=== PATIENT | female | born 1955 | race African-American/Black ===

== ENCOUNTER 2022-02-21 15:01 | Inpatient (IN) | payer BC, MEDICAID ==
[~2022-02-21] VITALS: Ht 170.2 cm; Wt 114.3 kg
[2022-02-21] MEDS ORDERED: LEVETIRACETAM 1000MG PREMIX 1,000 ML IV ONE (15:30)
[2022-02-21] MEDS ORDERED: SODIUM CHLORIDE 0.9% 1,000 ML IV ONE (15:30)
[2022-02-21 16:10] LABS: BASOPHILS % 0.6 % (0.0-2.0); CHLORIDE 106 mEq/L (98-107); EOSINOPHILS % 0.5 % (0.0-5.0); HEMATOCRIT. 42.7 % (36.0-48.0); HEMOGLOBIN. 14.3 g/dL (12.0-16.0); LYMPHOCYTES % 29.1 % (20.0-50.0); MEAN CORPUSCULAR HEMOGLOBIN 31.1 pg (28.0-32.0); MEAN CORPUSCULAR VOLUME 92.7 fL (81.0-99.0); MEAN PLATELET VOLUME 8.6 fl (7.4-10.4); MONOCYTES % 6.7 % (2.0-8.0); NEUTROPHILS % 63.1 % (40.0-76.0); PLATELET 235 x1000/uL (130-400); RED CELL DISTRIBUTION WIDTH 14.6 % (11.6-14.6)
[2022-02-21] MEDS ORDERED: LORAZEPAM 2MG/ML CPJ IV ONE (16:45)
[2022-02-21] MEDS ORDERED: LORAZEPAM 2MG/ML CPJ IV PRN ×2 (16:45→20:45)
[2022-02-21 20:24] LABS: CLARITY URINE CLEAR (CLEAR); COLOR URINE YELLOW (YELLOW); KETONES URINE NEGATIVE (NEGATIVE); LEUKOCYTE ESTERASE URINE NEGATIVE (NEGATIVE); NITRITE URINE NEGATIVE (NEGATIVE); OCCULT BLOOD URINE NEGATIVE (NEGATIVE); PROTEIN URINE NEGATIVE (NEGATIVE); SPECIFIC GRAVITY URINE 1.007 (1.005-1.030); UROBILINOGEN URINE 0.2 E.U./dL (0.2-1.0)
[2022-02-21] MEDS ORDERED: ONDANSETRON HCL 4MG/2ML INJ IV PRN (20:45)
[2022-02-21] MEDS ORDERED: DIPHENHYDRAMINE 50MG/ML VIAL IV PRN (20:45)
[2022-02-21] MEDS ORDERED: ACETAMINOPHEN 650MG SUPP PR PRN ×2 (20:45)
[2022-02-21] MEDS ORDERED: LEVETIRACETAM 500 MG in SODIUM CHLORIDE 0.9% 100 ML IV SCH (20:45)
[2022-02-21 22:48] VITALS: BP 127/78
[2022-02-21] MEDS: DEXT 5%/0.45% NACL 1000ML 1,000 ML IV SCH (23:21)
[2022-02-21] MEDS: LEVETIRACETAM 500MG PREMIX 100 ML IV SCH (23:21)
[2022-02-22] VITALS: BP 117/69
[2022-02-22 04:00] VITALS: BP 113/78
[2022-02-22 08:00] VITALS: BP 152/65
[2022-02-22] MEDS: DEXT 5%/0.45% NACL 1000ML 1,000 ML IV SCH ×2 (11:08→23:26)
[2022-02-22] MEDS: LEVETIRACETAM 500MG PREMIX 100 ML IV SCH ×2 (11:09→21:07)
[2022-02-22 11:25] LABS: BASOPHILS % 0.3 % (0.0-2.0); EOSINOPHILS % 0.4 % (0.0-5.0); HEMATOCRIT. 45.3 % (36.0-48.0); HEMOGLOBIN. 14.7 g/dL (12.0-16.0); LYMPHOCYTES % 33.8 % (20.0-50.0); MEAN CORPUSCULAR VOLUME 95.4 fL (81.0-99.0); MEAN PLATELET VOLUME 8.3 fl (7.4-10.4); MONOCYTES % 8.6 % (2.0-8.0); NEUTROPHILS % 56.9 % (40.0-76.0); PLATELET 222 x1000/uL (130-400); RED BLOOD CELL COUNT 4.75 mill/uL (4.2-5.4); RED CELL DISTRIBUTION WIDTH 15.5 % (11.6-14.6)
[2022-02-22 12:00] VITALS: BP 146/64
[2022-02-22 12:12] LABS: PHOSPHORUS 2.1 mg/dL (2.5-4.9)
[2022-02-22 12:50] LABS: CHLORIDE 110 mEq/L (98-107)
[2022-02-22] MEDS ORDERED: POTASSIUM CHLORIDE INJ 40 MEQ in DEXT 5% WATER 250 ML IV ONE (15:15)
[2022-02-22] MEDS ORDERED: SENNOSIDES/DOCUSATE SOD 8.6/50MG TABLET PO PRN (15:15)
[2022-02-22 16:00] VITALS: BP 132/75
[2022-02-22] MEDS: AMLODIPINE 5MG TABLET PO SCH (16:22)
[2022-02-22] MEDS: DONEPEZIL HCL 5MG TABLET PO SCH (16:22)
[2022-02-22] MEDS ORDERED: MAGNESIUM 1 G PREMIX 100 ML IV NR (16:30)
[2022-02-22] MEDS: CHOLECALCIFEROL (D3) 1000 UNIT TABLET PO SCH (19:33)
[2022-02-22] MEDS: ACETAMINOPHEN 325MG TABLET PO PRN (19:33)
[2022-02-22] MEDS: KCL 20MEQ/100ML X 2 FOR TOTAL KCL 40MEQ/200ML IV SCH ×2 (19:34→21:07)
[2022-02-22] MEDS: ENOXAPARIN 120MG/0.8ML SYR SUBCUT SCH (19:37)
[2022-02-22] MEDS ORDERED: MULT-624 MT (19:54)
[2022-02-22] MEDS ORDERED: CHOL400D7 PO (19:54)
[2022-02-22] MEDS ORDERED: ACET650S27 RC (19:54)
[2022-02-22] MEDS ORDERED: PANT40TA51 PO (19:54)
[2022-02-22] MEDS ORDERED: SENN-257 PO (19:54)
[2022-02-22] MEDS ORDERED: AMLO10TA80 PO (19:54)
[2022-02-22] MEDS ORDERED: HYDR2TAB7 PO (19:54)
[2022-02-22] MEDS ORDERED: GABA-532 PO (19:54)
[2022-02-22] MEDS ORDERED: ATOR-2 PO (19:54)
[2022-02-22] MEDS ORDERED: RIVA20TA PO (19:54)
[2022-02-22] MEDS ORDERED: DONE-51 PO (19:54)
[2022-02-22 20:00] VITALS: BP 126/73
[2022-02-22] MEDS: PANTOPRAZOLE 40MG DR TABLET PO SCH (21:08)
[2022-02-22] MEDS: ATORVASTATIN CALCIUM 40MG TABLET PO SCH (21:08)
[2022-02-23] VITALS: BP 119/71
[2022-02-23 04:00] VITALS: BP 127/76
[2022-02-23] MEDS: PANTOPRAZOLE 40MG DR TABLET PO SCH (06:07)
[2022-02-23] MEDS: ENOXAPARIN 120MG/0.8ML SYR SUBCUT SCH (06:22)
[2022-02-23 08:00] VITALS: BP 127/72
[2022-02-23 08:02] LABS: BASOPHILS % 0.5 % (0.0-2.0); EOSINOPHILS % 1.2 % (0.0-5.0); HEMATOCRIT. 39.8 % (36.0-48.0); HEMOGLOBIN. 13.4 g/dL (12.0-16.0); LYMPHOCYTES % 45.9 % (20.0-50.0); MEAN CORPUSCULAR VOLUME 92.3 fL (81.0-99.0); MONOCYTES % 6.6 % (2.0-8.0); NEUTROPHILS % 45.8 % (40.0-76.0); PLATELET 205 x1000/uL (130-400); RED BLOOD CELL COUNT 4.31 mill/uL (4.2-5.4); RED CELL DISTRIBUTION WIDTH 15.5 % (11.6-14.6)
[2022-02-23 08:05] LABS: INR 1.2; PROTHROMBIN TIME 12.3 sec (9.6-11.0)
[2022-02-23] MEDS: AMLODIPINE 5MG TABLET PO SCH ×2 (08:11→21:12)
[2022-02-23] MEDS: LEVETIRACETAM 500MG PREMIX 100 ML IV SCH ×2 (08:11→21:11)
[2022-02-23] MEDS: DONEPEZIL HCL 5MG TABLET PO SCH (08:11)
[2022-02-23] MEDS: CHOLECALCIFEROL (D3) 1000 UNIT TABLET PO SCH (08:11)
[2022-02-23] MEDS: ACETAMINOPHEN 325MG TABLET PO PRN (08:11)
[2022-02-23 09:17] LABS: CHLORIDE 107 mEq/L (98-107)
[2022-02-23 09:36] LABS: PHOSPHORUS 2.5 mg/dL (2.5-4.9)
[2022-02-23] MEDS ORDERED: IOHEXOL-350 100 ML BOTTLE ONE (11:14)
[2022-02-23 12:00] VITALS: BP 132/76
[2022-02-23] MEDS: DEXT 5%/0.45% NACL 1000ML 1,000 ML IV SCH (13:38)
[2022-02-23 16:00] VITALS: BP 144/80
[2022-02-23 20:00] VITALS: BP 115/73
[2022-02-23] MEDS: ATORVASTATIN CALCIUM 40MG TABLET PO SCH (21:12)
[2022-02-23] MEDS: FAMOTIDINE 20MG TABLET PO SCH (21:12)
[2022-02-23 23:39] LABS: CLARITY URINE CLOUDY (CLEAR); COLOR URINE YELLOW (YELLOW); KETONES URINE NEGATIVE (NEGATIVE); LEUKOCYTE ESTERASE URINE 1+ (NEGATIVE); NITRITE URINE POSITIVE (NEGATIVE); OCCULT BLOOD URINE 2+ (NEGATIVE); PROTEIN URINE TRACE (NEGATIVE); SPECIFIC GRAVITY URINE 1.082 (1.005-1.030); UROBILINOGEN URINE 0.2 E.U./dL (0.2-1.0)
[2022-02-24] VITALS: BP 116/69
[2022-02-24] MEDS: DEXT 5%/0.45% NACL 1000ML 1,000 ML IV SCH (01:43)
[2022-02-24 04:00] VITALS: BP 126/70
[2022-02-24] MEDS: ENOXAPARIN 120MG/0.8ML SYR SUBCUT SCH ×2 (05:54→17:50)
[2022-02-24 08:00] VITALS: BP 127/65
[2022-02-24] MEDS: CHOLECALCIFEROL (D3) 1000 UNIT TABLET PO SCH (08:13)
[2022-02-24] MEDS: FAMOTIDINE 20MG TABLET PO SCH ×2 (08:14→20:43)
[2022-02-24] MEDS: DONEPEZIL HCL 5MG TABLET PO SCH (08:14)
[2022-02-24] MEDS: LEVETIRACETAM 500MG PREMIX 100 ML IV SCH ×2 (08:14→20:43)
[2022-02-24] MEDS: AMLODIPINE 5MG TABLET PO SCH ×2 (08:14→20:44)
[2022-02-24] MEDS ORDERED: CEFTRIAXONE 1 G PREMIX 50 ML IV SCH (10:15)
[2022-02-24 12:00] VITALS: BP 131/68
[2022-02-24] MEDS: CEFTRIAXONE 1,000 MG in DEXTROSE 5% WATER 50 ML IV SCH (12:53)
[2022-02-24 16:00] VITALS: BP 110/68
[2022-02-24 20:00] VITALS: BP 135/54
[2022-02-24] MEDS: ACETAMINOPHEN 325MG TABLET PO PRN (20:43)
[2022-02-24] MEDS: ATORVASTATIN CALCIUM 40MG TABLET PO SCH (20:44)
[2022-02-25] VITALS: BP 129/67
[2022-02-25 04:30] VITALS: BP 117/63
[2022-02-25] MEDS: ENOXAPARIN 120MG/0.8ML SYR SUBCUT SCH (05:12)
[2022-02-25] MEDS: ACETAMINOPHEN 325MG TABLET PO PRN ×2 (05:34→08:47)
[2022-02-25 08:00] VITALS: BP 143/79
[2022-02-25] MEDS: AMLODIPINE 5MG TABLET PO SCH (08:47)
[2022-02-25] MEDS: DONEPEZIL HCL 5MG TABLET PO SCH (08:47)
[2022-02-25] MEDS: FAMOTIDINE 20MG TABLET PO SCH (08:47)
[2022-02-25] MEDS: CHOLECALCIFEROL (D3) 1000 UNIT TABLET PO SCH (08:48)
[2022-02-25] MEDS: LEVETIRACETAM 500MG PREMIX 100 ML IV SCH (08:48)
[2022-02-25 12:00] VITALS: BP 140/90
[2022-02-25] MEDS: CEFTRIAXONE 1,000 MG in DEXTROSE 5% WATER 50 ML IV SCH (12:58)
[2022-02-25 14:04] VITALS: BP 140/91
== END 2022-02-25 16:58 | disposition home or self-care (01) | DRG 101 ==
LOC: ER 15:01 → 6WST 18:02 → EDBEDREQ 18:21 → ENRESERV 20:07
PROVIDERS: ADMIT Internal Medicine; ATTEND Internal Medicine
PROC: 4A00X4Z Measurement of Central Nervous Electrical Activity, External Approach (ICD-10-PCS; principal; 2022-02-24)
DX: G40.901 Epilepsy, unspecified, not intractable, with status epilepticus (principal); I69.351 Hemiplegia and hemiparesis following cerebral infarction affecting right dominant side; Z68.41 Body mass index [BMI] 40.0-44.9, adult; N39.0 Urinary tract infection, site not specified; Z20.822 Contact with and (suspected) exposure to COVID-19; E78.00 Pure hypercholesterolemia, unspecified; G89.29 Other chronic pain; I11.9 Hypertensive heart disease without heart failure; E66.01 Morbid (severe) obesity due to excess calories; Z79.01 Long term (current) use of anticoagulants; Z79.899 Other long term (current) drug therapy
CPT/HCPCS: 36415; 70551; 71046; 71275; 80048; 80053; 81003; 83735; 84100; 84443; 85025; 85379; 87426; 93005; 93306; 93970; 95816; 97162; 99291; C9803; J0696; J1650; J1953; J2060; J3475; J3480; J7030; J7060; Q9967

== ENCOUNTER 2024-08-08 08:25 | Inpatient (IN) | payer MEDICARE, MEDICAID ==
[~2024-08-08] VITALS: Ht 165.1 cm; Wt 130.2 kg
[2024-08-08] VITALS (33 sets, daily range): BP systolic 134–188; BP diastolic 62–135; PULSE 87–104; RESP 13–27; TEMP 36.5–37.6; O2SAT 94–100
[~2024-08-08 08:25] MED LIST: ACET650S27 RC; AMLO10TA80 PO; ATOR-2 PO; CHOL400D7 PO; DONE-51 PO; GABA-1180 PO; HYDR2TAB7 PO; MULT-624 MT; PANT40TA51 PO; RIVA20TA PO; SENN-362 PO
[2024-08-08] MEDS ORDERED: LORAZEPAM 2MG/ML INJ IV ONE (09:45)
[2024-08-08] MEDS ORDERED: LEVETIRACETAM 500MG PREMIX 100 ML IV ONE (09:45)
[2024-08-08] MEDS ORDERED: LORAZEPAM 2MG/ML INJ IV NR (09:45)
[2024-08-08] MEDS: LORAZEPAM 2MG/ML UD SYRINGE IV NR (09:49)
[2024-08-08] MEDS: LEVETIRACETAM 1500MG PREMIX 100 ML IV SCH (09:55)
[2024-08-08 09:58] LABS: BASOPHILS % 0.2 % (0.0-2.0); HEMATOCRIT. 47.8 % (36.0-48.0); HEMOGLOBIN. 15.4 g/dL (12.0-16.0); LYMPHOCYTES % 8.9 % (20.0-50.0); MEAN CORPUSCULAR HEMOGLOBIN 30.7 pg (28.0-32.0); MEAN CORPUSCULAR HGB CONC 32.2 g/dL (31.0-37.0); MEAN CORPUSCULAR VOLUME 95.3 fL (81.0-99.0); MEAN PLATELET VOLUME 8.8 fl (7.4-10.4); MONOCYTES % 3.8 % (2.0-8.0); NEUTROPHILS % 87.1 % (40.0-76.0); PLATELET 290 x1000/uL (130-400); RED BLOOD CELL COUNT 5.01 mill/uL (4.2-5.4); RED CELL DISTRIBUTION WIDTH 14.5 % (11.6-14.6); WHITE BLOOD COUNT 11.6 x1000/uL (4.5-11.0)
[2024-08-08 10:02] LABS: CHLORIDE 105 mEq/L (98-107); POTASSIUM 3.7 mEq/L (3.5-5.1); SODIUM 142 mEq/L (136-145)
[2024-08-08 10:03] LABS: CARBON DIOXIDE 26 mEq/L (21-32)
[2024-08-08 10:08] LABS: CREATININE 0.9 mg/dL (0.6-1.0); GLUCOSE 151 mg/dL (70-105); UREA NITROGEN BLOOD 10 mg/dL (9-23)
[2024-08-08 10:09] LABS: ALANINE AMINOTRANSFERASE 22 IU/L (10-49); ASPARTATE AMINOTRANSFERASE 28 IU/L (<34)
[2024-08-08 10:10] LABS: ALBUMIN 4.6 g/dL (3.2-4.8); BILIRUBIN TOTAL 0.3 mg/dL (0.1-1.0); CREATINE KINASE 41 IU/L (34-145); PROTEIN TOTAL 8.6 g/dL (6.0-8.3)
[2024-08-08] MEDS: LACOSAMIDE 200 MG in SODIUM CHLORIDE 0.9% 100 ML IV SCH (11:38)
[2024-08-08] MEDS ORDERED: ACETAMINOPHEN 325MG TABLET PO PRN (12:15)
[2024-08-08] MEDS ORDERED: ONDANSETRON HCL 4MG/2ML INJ IV PRN (12:15)
[2024-08-08] MEDS ORDERED: LORAZEPAM 2MG/ML UD SYRINGE IV PRN (12:15)
[2024-08-08] MEDS ORDERED: DEXTROSE 50% WATER 50ML SYRINGE IV PRN (12:15)
[2024-08-08] MEDS ORDERED: LORAZEPAM 0.5MG TABLET PO PRN (12:15)
[2024-08-08] MEDS ORDERED: IPRATROPIUM/ALBUTEROL 0.5-3(2.5)MG/3ML NEB HHN PRN (12:15)
[2024-08-08] MEDS ORDERED: GUAIFENESIN 200MG/10ML SUGAR FREE UDC PO PRN (12:15)
[2024-08-08] MEDS ORDERED: DOCUSATE SODIUM 100MG CAPSULE PO PRN (12:15)
[2024-08-08] MEDS: INSULIN LISPRO 100 UNITS/ML SUBCUT SCH (12:30)
[2024-08-08] MEDS: CEFTRIAXONE 1GM/50ML 50 ML IV ONE (12:37)
[2024-08-08] MEDS: BLOOD SUGAR DIAGNOSTIC STRIP TEST SCH (12:37)
[2024-08-08] MEDS: DEXT 5%/0.45% NACL 1000ML 1,000 ML IV SCH (12:44)
[2024-08-08] MEDS: ACETAMINOPHEN 650MG SUPP PR PRN (13:14)
[2024-08-08 13:26] LABS: LDL CHOLESTEROL 87 mg/dL (5-100); TRIGLYCERIDE 105 mg/dL (0-150)
[2024-08-08 13:27] LABS: ALBUMIN 4.6 g/dL (3.2-4.8); HDL CHOLESTEROL 42 mg/dL (>65)
[2024-08-08 13:28] LABS: CHOLESTEROL 150 mg/dL (<200); PHOSPHORUS 3.7 mg/dL (2.5-4.9)
[2024-08-08 13:30] LABS: T4 FREE 1.62 ng/dL (0.89-1.76); THYROID STIMULATING HORMONE 1.43 uIU/mL (0.55-4.78)
[2024-08-08 13:37] LABS: AMMONIA 18 uMol/L (<32)
[2024-08-08 14:07] LABS: LACTIC ACID 3.4 mmol/L (0.4-2.0)
[2024-08-08] MEDS: PANTOPRAZOLE SODIUM 40 MG/VIAL IV SCH (14:23)
[2024-08-08] MEDS: HYDRALAZINE 20MG/ML VIAL IV PRN (14:54)
[2024-08-08 15:49] LABS: VITAMIN B12 SERUM 496 pg/mL (211-911)
[2024-08-08 15:57] LABS: CREATINE KINASE 46 IU/L (34-145); TROPONIN I HIGH SENSITIVITY 91 ng/L (3.0-34)
[2024-08-08] MEDS: ENOXAPARIN 30MG/0.3ML SYR SUBCUT SCH (18:53)
[2024-08-08 19:19] LABS: CLARITY URINE CLOUDY (CLEAR); GLUCOSE URINE NEGATIVE (NEGATIVE); KETONES URINE NEGATIVE (NEGATIVE); LEUKOCYTE ESTERASE URINE NEGATIVE (NEGATIVE); NITRITE URINE NEGATIVE (NEGATIVE); OCCULT BLOOD URINE NEGATIVE (NEGATIVE); PH URINE 5.5 (4.5-8.0); PROTEIN URINE 2+ (NEGATIVE); SPECIFIC GRAVITY URINE 1.028 (1.005-1.030); UROBILINOGEN URINE 0.2 E.U./dL (0.2-1.0)
[2024-08-08 19:29] LABS: *AMPHETAMINES SCREEN URINE NEGATIVE (NEGATIVE); *BARBITURATES SCREEN URINE NEGATIVE (NEGATIVE); *BENZODIAZEPINES SCREEN URINE PRESUMPTIVE POSITIVE (NEGATIVE); *COCAINE SCREEN URINE NEGATIVE (NEGATIVE)
[2024-08-08 19:30] LABS: CANNABINOID URINE SCREEN PRESUMPTIVE POSITIVE (NEGATIVE); ECSTASY MDMA SCREEN URINE NEGATIVE (NEGATIVE); METHADONE URINE SCREEN NEGATIVE (NEGATIVE); OPIATES URINE SCREEN NEGATIVE (NEGATIVE); PHENCYCLIDINE URINE SCREEN NEGATIVE (NEGATIVE)
[2024-08-08 20:09] LABS: COLOR URINE YELLOW (YELLOW)
[2024-08-08 20:11] LABS: BACTERIA URINE NONE SEEN; RBC URINE NONE SEEN /hpf (0-2); SQUAMOUS EPITHELIAL CELL URINE NONE SEEN /lpf (RARE/1+); WBC URINE NONE SEEN /hpf (0-2)
[2024-08-08 20:12] LABS: HYALINE CASTS URINE 0-5 /lpf
[2024-08-08] MEDS ORDERED: LEVETIRACETAM 1,000MG in NACL 100ML PREMIX IV SCH (21:00)
[2024-08-08] MEDS: LEVETIRACETAM 1000MG PREMIX 100 ML IV SCH (21:32)
[2024-08-08 23:13] LABS: CREATINE KINASE 48 IU/L (34-145)
[2024-08-08 23:16] LABS: TROPONIN I HIGH SENSITIVITY 82 ng/L (3.0-34)
[2024-08-09] VITALS (52 sets, daily range): BP systolic 92–174; BP diastolic 45–81; PULSE 67–103; RESP 11–32; TEMP 36.5–38.2; O2SAT 94–100
[2024-08-09] MEDS: CLONIDINE 0.1MG TABLET PO PRN (02:37)
[2024-08-09] MEDS: ACETAMINOPHEN 325MG TABLET PO PRN (03:36)
[2024-08-09 06:09] LABS: CALCIUM 9.8 mg/dL (8.7-10.4); CHLORIDE 106 mEq/L (98-107); POTASSIUM 3.7 mEq/L (3.5-5.1); SODIUM 142 mEq/L (136-145)
[2024-08-09 06:10] LABS: CARBON DIOXIDE 28 mEq/L (21-32)
[2024-08-09] MEDS: HYDRALAZINE HCL 50MG TABLET PO SCH (06:13)
[2024-08-09 06:15] LABS: CREATININE 0.6 mg/dL (0.6-1.0); GLUCOSE 106 mg/dL (70-105); UREA NITROGEN BLOOD 7 mg/dL (9-23)
[2024-08-09 06:34] LABS: BASOPHILS % 0.3 % (0.0-2.0); HEMATOCRIT. 40.2 % (36.0-48.0); HEMOGLOBIN. 13.1 g/dL (12.0-16.0); LYMPHOCYTES % 26.2 % (20.0-50.0); MEAN CORPUSCULAR HEMOGLOBIN 30.9 pg (28.0-32.0); MEAN CORPUSCULAR HGB CONC 32.6 g/dL (31.0-37.0); MEAN CORPUSCULAR VOLUME 94.9 fL (81.0-99.0); MEAN PLATELET VOLUME 8.7 fl (7.4-10.4); MONOCYTES % 11.9 % (2.0-8.0); NEUTROPHILS % 61.6 % (40.0-76.0); PLATELET 250 x1000/uL (130-400); RED BLOOD CELL COUNT 4.23 mill/uL (4.2-5.4); RED CELL DISTRIBUTION WIDTH 14.3 % (11.6-14.6); WHITE BLOOD COUNT 8.1 x1000/uL (4.5-11.0)
[2024-08-09] MEDS: AMLODIPINE 10MG TABLET PO SCH (10:07)
[2024-08-09] MEDS: FUROSEMIDE 40MG/4ML VIAL IVP SCH (18:14)
[2024-08-10] VITALS (8 sets, daily range): BP systolic 121–149; BP diastolic 51–66; PULSE 71–99; RESP 16–20; TEMP 36.2–36.9; O2SAT 97–100
[2024-08-10 06:53] LABS: BASOPHILS % 0.3 % (0.0-2.0); EOSINOPHILS % 0.2 % (0.0-5.0); HEMATOCRIT. 42.9 % (36.0-48.0); HEMOGLOBIN. 14.3 g/dL (12.0-16.0); LYMPHOCYTES % 25.9 % (20.0-50.0); MEAN CORPUSCULAR HEMOGLOBIN 31.7 pg (28.0-32.0); MEAN CORPUSCULAR HGB CONC 33.4 g/dL (31.0-37.0); MEAN CORPUSCULAR VOLUME 94.8 fL (81.0-99.0); MEAN PLATELET VOLUME 8.8 fl (7.4-10.4); MONOCYTES % 9.5 % (2.0-8.0); NEUTROPHILS % 64.1 % (40.0-76.0); PLATELET 269 x1000/uL (130-400); RED BLOOD CELL COUNT 4.52 mill/uL (4.2-5.4); RED CELL DISTRIBUTION WIDTH 14.3 % (11.6-14.6); WHITE BLOOD COUNT 7.8 x1000/uL (4.5-11.0)
[2024-08-10 08:01] LABS: CARBON DIOXIDE 27 mEq/L (21-32); CHLORIDE 108 mEq/L (98-107); POTASSIUM 3.6 mEq/L (3.5-5.1); SODIUM 146 mEq/L (136-145)
[2024-08-10 08:02] LABS: CALCIUM 10.1 mg/dL (8.7-10.4)
[2024-08-10 08:07] LABS: CREATININE 0.6 mg/dL (0.6-1.0); GLUCOSE 106 mg/dL (70-105); UREA NITROGEN BLOOD 7 mg/dL (9-23)
[2024-08-10] MEDS ORDERED: APIX5TAB PO (10:08)
[2024-08-10] MEDS: CARVEDILOL 6.25 MG TABLET PO SCH (14:02)
[2024-08-10] MEDS ORDERED: FURO40TA5 PO (18:12)
[2024-08-10] MEDS ORDERED: HYDR50TA39 PO (18:28)
[2024-08-10] MEDS ORDERED: LEVE1000 MT (18:28)
[2024-08-11] VITALS: BP 120/58; PULSE 64; RESP 20; TEMP 36.9; O2SAT 98
[2024-08-11 04:00] VITALS: BP 113/62; PULSE 66; RESP 20; TEMP 36.7; O2SAT 98
[2024-08-11 05:59] LABS: CARBON DIOXIDE 29 mEq/L (21-32); CHLORIDE 107 mEq/L (98-107); POTASSIUM 3.5 mEq/L (3.5-5.1); SODIUM 144 mEq/L (136-145)
[2024-08-11 06:00] LABS: CALCIUM 9.6 mg/dL (8.7-10.4)
[2024-08-11 06:05] LABS: CREATININE 0.7 mg/dL (0.6-1.0); GLUCOSE 99 mg/dL (70-105); HEMOGLOBIN 13.1 g/dL (12.0-16.0); MEAN CORPUSCULAR HEMOGLOBIN 30.9 pg (28.0-32.0); MEAN CORPUSCULAR HGB CONC 32.7 g/dL (31.0-37.0); MEAN CORPUSCULAR VOLUME 94.5 fL (81.0-99.0); PLATELET 250 x1000/uL (130-400); RED BLOOD CELL COUNT 4.24 mill/uL (4.2-5.4); RED CELL DISTRIBUTION WIDTH 14.2 % (11.6-14.6); UREA NITROGEN BLOOD 10 mg/dL (9-23); WHITE BLOOD COUNT 6.3 x1000/uL (4.5-11.0)
[2024-08-11 08:00] VITALS: BP 129/62; PULSE 71; RESP 19; TEMP 36.5; O2SAT 99
[2024-08-11] MEDS ORDERED: LISI40TA13 PO (08:15)
[2024-08-11] MEDS ORDERED: COR6 PO (08:15)
[2024-08-11] MEDS: LISINOPRIL 40MG TABLET PO SCH (09:00)
[2024-08-11 10:37] VITALS: BP 129/62; PULSE 71; TEMP 97.7; O2SAT 99
[2024-08-11 12:00] VITALS: BP 139/67; PULSE 73; RESP 19; TEMP 36.3; O2SAT 98
[2024-08-11 15:10] LABS: CREATINE KINASE 72 IU/L (34-145)
== END 2024-08-11 14:00 | DRG 100 ==
LOC: ER 08:25 → MICUNO 11:09 → EDBEDREQTM 11:12 → EDBEDREQ 11:12 → EDBEDREQSVC 11:12 → 6WST 08-10 00:55
PROVIDERS: ADMIT Internal Medicine; ATTEND Internal Medicine
PROC: 4A00X4Z Measurement of Central Nervous Electrical Activity, External Approach (ICD-10-PCS; principal; 2024-08-08)
DX: G40.901 Epilepsy, unspecified, not intractable, with status epilepticus (principal); I21.A1 Myocardial infarction type 2; J96.01 Acute respiratory failure with hypoxia; I16.1 Hypertensive emergency; I69.351 Hemiplegia and hemiparesis following cerebral infarction affecting right dominant side; I50.22 Chronic systolic (congestive) heart failure; R73.9 Hyperglycemia, unspecified; G93.89 Other specified disorders of brain; Z91.148 Patient's other noncompliance with medication regimen for other reason; D64.9 Anemia, unspecified; I25.10 Atherosclerotic heart disease of native coronary artery without angina pectoris; E78.00 Pure hypercholesterolemia, unspecified; I11.0 Hypertensive heart disease with heart failure; Z74.01 Bed confinement status; Z79.01 Long term (current) use of anticoagulants; Z79.899 Other long term (current) drug therapy; Z85.820 Personal history of malignant melanoma of skin; Z86.718 Personal history of other venous thrombosis and embolism
CPT/HCPCS: 36415; 70551; 71045; 80048; 80053; 80061; 80305; 80339; 81003; 82040; 82140; 82542; 82550; 82607; 82962; 83036; 83605; 83735; 83880; 84100; 84145; 84439; 84443; 84484; 85025; 85027; 92610; 93005; 93306; 93970; 95816; 99291; A6261; J0360; J1650; J1940; J1953; J2060; J2470; J7050